=== PATIENT | female | born 1995 | race Caucasian/White ===

== ENCOUNTER → 2018-01-30 | Outpatient (CLI) | payer OTHER ==
[2018-01-30 15:13] LABS: BASO % 1 % (0-3); EOS # 0.1 x10^3/uL (0.0-0.7); EOS % 1 % (0-3); HEMATOCRIT 38.9 % (36.0-47.0); HEMOGLOBIN 13.6 g/dL (12.0-15.5); LYMPH # 2.5 x10^3/uL (1.0-4.8); LYMPH % 35 % (24-48); MEAN CORPUSCULAR HEMOGLOBIN 31 pg (25-35); MEAN CORPUSCULAR HGB CONC 35 g/dL (31-37); MEAN CORPUSCULAR VOLUME 90 fL (79-100); MONO # 0.6 x10^3/uL (0.0-1.1); MONO % 8 % (0-9); NEUT # 4.1 x10^3uL (1.8-7.7); NEUT % 56 % (31-73); PLATELET COUNT 181 x10^3/uL (140-400); RED BLOOD COUNT 4.34 x10^6/uL (3.50-5.40); RED CELL DISTRIBUTION WIDTH 12.3 % (11.5-14.5); WHITE BLOOD COUNT 7.3 x10^3/uL (4.0-11.0)
== END | disposition home or self-care (01) ==
LOC: LAB 14:38
PROVIDERS: ATTEND Obstetrics & Gynecology
DX: Z32.01 Encounter for pregnancy test, result positive (principal)
CPT/HCPCS: 85025; 86592; 86703; 86706; 86762; 86850; 86900; 86901; 87340

== ENCOUNTER 2018-03-11 03:23 | Inpatient (IN) | payer OTHER ==
[~2018-03-11] VITALS: Ht 162.6 cm; Wt 59.0 kg
[2018-03-11 03:50] VITALS: BP_SYST 113; BP_SYST 128; BP_DIAS 57; BP_DIAS 71
[2018-03-11] MEDS ORDERED: ESCITALOPRAM OX20 MG PO (03:59)
[2018-03-11] MEDS ORDERED: ONDANSETRON PF 4 MG/2 ML VIAL. IV PRN (04:00)
[2018-03-11] MEDS ORDERED: MORPHINE SULFATE 2 MG/ML VIAL. IV PRN (04:00)
[2018-03-11] MEDS ORDERED: IV RINGERS,LACTATED 1000ML 1,000 ML IV SCH (04:00)
[2018-03-11 07:00] VITALS: BP 111/60
--- NOTE | 2018-03-11 07:34 | PDOC1 ---
History and Physical Date of Admission Date of Admission DATE: 03/11/18 TIME: 07:33 Identification/Chief Complaint Chief Complaint RLQ pain 11 weeks gestation MDD Source Source: Chart review, Patient History of Present Illness History of Present Illness 23yo female with PMHx depression, 11 weeks gestation came to [facility] ED last night c/o RLQ pain that is colicky, radiating to umbilicus. Only relief was with morphine 4mg IV. She underwent TVUS noting IUP and RLQ US not visualizing the appendix well, but no notable masses/abscess. She was transferred for surgical consultation and consideration of MRI to better elucidate her pain. US did show 11 wks 6 days IUP with small subchorionic blood collection and placenta previa. No WBC elevation or fever noted. Past Medical History Cardiovascular: No pertinent hx Pulmonary: No pertinent hx GI: No pertinent hx Heme/Onc: No pertinent hx Hepatobiliary: No pertinent hx Psych: No pertinent hx Rheumatologic: No pertinent hx Infectious disease: No pertinent hx ENT: No pertinent hx Renal/: No pertinent hx Endocrine: No pertinent hx Dermatology: No pertinent hx Past Surgical History Past Surgical History: No pertinent history Family History Family History: Chronic Bronchitis, Heart Disease Social History Smoke: No ALCOHOL: none Drugs: None Current Medications Current Medications Current Medications Ringer's Solution 1,000 ml @ 75 mls/hr [id number] IV Last administered on at 04:15; Start 03/11/18 at 04:00 Morphine Sulfate (Morphine Sulfate) 2 mg PRN Q4HRS PRN IV PAIN; Start at 04:00 Ondansetron HCl (Zofran) 4 mg PRN Q8HRS PRN IV NAUSEA/VOMITING; Start at 04:00 Active Scripts Active Reported Escitalopram Oxalate 20 Mg Tablet 20 Mg PO DAILY Allergies Allergies: Coded Allergies: No Known Drug Allergies (Unverified , 03/11/18) ROS General: No: Chills, Night Sweats, Fatigue, Malaise, Appetite, Other PSYCHOLOGICAL ROS: No: Anxiety, Behavioral Disorder, Concentration difficultie , Decreased libido, Depression, Disorientation, Hallucinations, Hostility, Irritablity, Memory difficulties, Mood Swings, Obsessive thoughts, Physical abuse, Sexual abuse, Sleep disturbances, Suicidal ideation, Other Eyes: No Blurry vision, No Decreased vision, No Double vision, No Dry eyes, No Excessive tearing, No Eye Pain, No Itchy Eyes, No Loss of vision, No Photophobia , No Scotomata, No Uses contacts, No Uses glasses, No Other HEENT: No: Heacaches, Visual Changes, Hearing change, Nasal congestion, Nasal discharge, Oral lesions, Sinus pain, Sore Throat, Epistaxis, Sneezing, Snoring, Tinnitus, Vertigo, Vocal changes, Other ALLERGY AND IMMUNOLOGY: No: Hives, Insect Bite Sensitivity, Itchy/Watery Eyes, Nasal Congestion, Post Nasal Drip, Seasonal Allergies, Other Hematological and Lymphatic: No: Bleeding Problems, Blood Clots, Blood Transfusions, Brusing, Night Sweats, Pallor, Swollen Lymph Nodes, Other ENDOCRINE: No: Breast Changes, Galactorrhea, Hair Pattern Changes, Hot Flashes , Malaise/lethargy, Mood Swings, Palpitations, Polydipsia/polyuria, Skin Changes , Temperature Intolerance, Unexpected Weight Changes, Other Breast: No New/Changing Breast Lumps, No Nipple changes, No Nipple discharge, No Other Respiratory: No: Cough, Hemoptysis, Orthopnea, Pleuritic Pain, Shortness of breath, SOB with excertion, Sputum Changes, Stridor, Tachypnea, Wheezing, Other Cardiovascular: No Chest Pain, No Palpitations, No Orthopnea, No Paroxysmal Noc. Dyspnea, No Edema, No Lt Headedness, No Other Gastrointestinal: Yes Constipation; No Nausea, No Vomiting, No Abdominal Pain, No Diarrhea, No Melena, No Hematochezia, No Other Genitourinary: No Dysuria, No Frequency, No Incontinence, No Hematuria, No Retention, No Discharge, No Urgency, No Pain, No Flank Pain, No Other, No , No , No , No , No , No , No Musculoskeletal: No Gait Disturbance, No Joint Pain, No Joint Stiffness, No Joint Swelling, No Muscle Pain, No Muscular Weakness, No Pain In:, No Swelling In:, No Other Neurological: No Behavorial Changes, No Bowel/Bladder ControlChng, No Confusion , No Dizziness, No Gait Disturbance, No Headaches, No Impaired Coord/balance, No Memory Loss, No Numbness/Tingling, No Seizures, No Speech Problems, No Tremors, No Visual Changes, No Weakness, No Other Skin: No Dry Skin, No Eczema, No Hair Changes, No Lumps, No Mole Changes, No Mottling, No Nail Changes, No Pruritus, No Rash, No Skin Lesion Changes, No Other, No Acne Physical Exam General: Alert, Oriented X3, Cooperative, No acute distress HEENT: Atraumatic, PERRLA, EOMI, Mucous membr. moist/pink Heart: S1S2, RRR, no murmurs Abdomen: Normal bowel sounds, Soft, No tenderness, No hepatosplenomegaly, No masses Rectal Exam: not examined Extremities: No clubbing, No cyanosis, No edema, Normal pulses, No tenderness/ swelling Skin: No rashes, No breakdown, No significant lesion Neuro: Normal gait, Normal speech, Strength at 5/5 X4 ext, Normal tone, Sensation intact, Cranial nerves 3-12 NL, Reflexes 2+ Psych/Mental Status: Mental status NL, Mood NL Vitals Vitals Vital Signs Date Time Temp Pulse Resp B/P (MAP) Pulse Ox O2 Delivery O2 Flow Rate FiO2 03/11/18 03:50 98.3 81 18 128/71 (90) 94 Room Air 98.3 VTE Prophylaxis Ordered VTE Prophylaxis Devices: Yes VTE Pharmacological Prophylaxi: No Assessment/Plan Assessment/Plan A/P: RLQ pain - improving, but did not have diet yet. 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 Placenta previa - MDD - stable mood today. her partner is bedside Diet - NPO -->Advance if ok with surgery PPX - ambulatory FULL CODE Admitted inpatient for concern for appendicitis MICHEAL HWANG MD Mar 11, 2018 07:34
--- NOTE | 2018-03-11 09:28 | PDOC2 ---
CONSULT Date of Consult Date of Consult DATE: 03/11/18 TIME: 09:24 Reason for Consult Reason for Consult: Abdominal pain Referring Physician Referring Physician: Manisha Identification/Chief Complaint Chief Complaint Lower midline abdominal pain with nausea vomiting Source Source: Patient History of Present Illness Reason for Visit: 23-year-old female 11 weeks had severe lower midline pelvic pain and nausea with vomiting she had a bowel movement yesterday which are generally constipated of this was no different. She denies any fevers or chills. Currently she states her pain is much improved Past Medical History Cardiovascular: No pertinent hx Pulmonary: No pertinent hx GI: No pertinent hx Heme/Onc: No pertinent hx Hepatobiliary: No pertinent hx Psych: No pertinent hx Rheumatologic: No pertinent hx ENT: No pertinent hx Renal/: No pertinent hx Endocrine: No pertinent hx Dermatology: No pertinent hx Past Surgical History Past Surgical History: No pertinent history Family History Family History: No Significant Social History No ALCOHOL: none Drugs: None Lives: with Family Current Medications Current Medications Current Medications Ringer's Solution 1,000 ml @ 75 mls/hr [id number] IV Last administered on at 04:15; Start 03/11/18 at 04:00 Morphine Sulfate (Morphine Sulfate) 2 mg PRN Q4HRS PRN IV PAIN; Start at 04:00 Ondansetron HCl (Zofran) 4 mg PRN Q8HRS PRN IV NAUSEA/VOMITING; Start at 04:00 Active Scripts Active Reported Escitalopram Oxalate 20 Mg Tablet 20 Mg PO DAILY Allergies Allergies: Coded Allergies: No Known Drug Allergies (Unverified , 03/11/18) ROS Gastrointestinal: Yes Nausea, Yes Vomiting, Yes Abdominal Pain Physical Exam General: Alert, Oriented X3, Cooperative, No acute distress HEENT: Atraumatic, EOMI Lungs: Clear to auscultation, Normal air movement Heart: Regular rate, No murmurs Abdomen: Normal bowel sounds, Soft, No tenderness Extremities: No edema Skin: No significant lesion Neuro: Normal speech Psych/Mental Status: Mental status NL Vitals VITALS Vital Signs Date Time Temp Pulse Resp B/P (MAP) Pulse Ox O2 Delivery O2 Flow Rate FiO2 03/11/18 07:00 98.7 86 18 111/60 (77) 99 Room Air 98.7 Labs Labs CBC at [place] showed normal white count with normal shift Images Images Ultrasound of the abdomen and pelvis did not visualize an appendix Assessment/Plan Assessment/Plan Lower abdominal pain in 11 weeks gestational normal white count afebrile normal heart rate normal shift ultrasound did not visualize appendix. Very unlikely to be appendicitis No surgical plans at this time KATHI SHORT MD Mar 11, 2018 09:28
--- NOTE | 2018-03-11 10:52 | PDOC2 ---
CONSULT Date of Consult Date of Consult DATE: 03/11/18 TIME: 10:44 Reason for Consult Reason for Consult: abd pain Referring Physician Referring Physician: Dr. Rushing Identification/Chief Complaint Chief Complaint abd pain Source Source: Chart review, Patient History of Present Illness Reason for Visit: 23 y/o @ 11 wks 6 days presented to [facility] ED with c/o severe RLQ pain that was sudden and sharp in nature. She denies any fevers, chills, N/V, dysuria or hematuria. Sono indicated 11 wks 6 days IUP with small subchorionic blood collection and placenta previa. Past Medical History Cardiovascular: No pertinent hx Pulmonary: No pertinent hx GI: No pertinent hx Heme/Onc: No pertinent hx Hepatobiliary: No pertinent hx Psych: No pertinent hx Rheumatologic: No pertinent hx ENT: No pertinent hx Renal/: No pertinent hx Endocrine: No pertinent hx Dermatology: No pertinent hx Past Surgical History Past Surgical History: No pertinent history Family History Family History: No Significant Social History No ALCOHOL: none Drugs: None Lives: with Family Current Medications Current Medications Current Medications Ringer's Solution 1,000 ml @ 75 mls/hr [id number] IV Last administered on at 04:15; Start 03/11/18 at 04:00 Morphine Sulfate (Morphine Sulfate) 2 mg PRN Q4HRS PRN IV PAIN; Start at 04:00 Ondansetron HCl (Zofran) 4 mg PRN Q8HRS PRN IV NAUSEA/VOMITING; Start at 04:00 Active Scripts Active Reported Escitalopram Oxalate 20 Mg Tablet 20 Mg PO DAILY Allergies Allergies: Coded Allergies: No Known Drug Allergies (Unverified , 03/11/18) ROS General: YES: Fatigue, Appetite; No: Chills, Night Sweats, Malaise, Other PSYCHOLOGICAL ROS: No: Anxiety, Behavioral Disorder, Concentration difficultie , Decreased libido, Depression, Disorientation, Hallucinations, Hostility, Irritablity, Memory difficulties, Mood Swings, Obsessive thoughts, Physical abuse, Sexual abuse, Sleep disturbances, Suicidal ideation, Other Eyes: No Blurry vision, No Decreased vision, No Double vision, No Dry eyes, No Excessive tearing, No Eye Pain, No Itchy Eyes, No Loss of vision, No Photophobia , No Scotomata, No Uses contacts, No Uses glasses, No Other HEENT: No: Heacaches, Visual Changes, Hearing change, Nasal congestion, Nasal discharge, Oral lesions, Sinus pain, Sore Throat, Epistaxis, Sneezing, Snoring, Tinnitus, Vertigo, Vocal changes, Other ALLERGY AND IMMUNOLOGY: No: Hives, Insect Bite Sensitivity, Itchy/Watery Eyes, Nasal Congestion, Post Nasal Drip, Seasonal Allergies, Other Hematological and Lymphatic: No: Bleeding Problems, Blood Clots, Blood Transfusions, Brusing, Night Sweats, Pallor, Swollen Lymph Nodes, Other ENDOCRINE: No: Breast Changes, Galactorrhea, Hair Pattern Changes, Hot Flashes , Malaise/lethargy, Mood Swings, Palpitations, Polydipsia/polyuria, Skin Changes , Temperature Intolerance, Unexpected Weight Changes, Other Breast: No New/Changing Breast Lumps, No Nipple changes, No Nipple discharge, No Other Respiratory: No: Cough, Hemoptysis, Orthopnea, Pleuritic Pain, Shortness of breath, SOB with excertion, Sputum Changes, Stridor, Tachypnea, Wheezing, Other Cardiovascular: No Chest Pain, No Palpitations, No Orthopnea, No Paroxysmal Noc. Dyspnea, No Edema, No Lt Headedness, No Other Gastrointestinal: No Nausea, No Vomiting, No Abdominal Pain, No Diarrhea, No Constipation, No Melena, No Hematochezia, No Other Genitourinary: No Dysuria, No Frequency, No Incontinence, No Hematuria, No Retention, No Discharge, No Urgency, No Pain, No Flank Pain, No Other, No , No , No , No , No , No , No Musculoskeletal: No Gait Disturbance, No Joint Pain, No Joint Stiffness, No Joint Swelling, No Muscle Pain, No Muscular Weakness, No Pain In:, No Swelling In:, No Other Neurological: No Behavorial Changes, No Bowel/Bladder ControlChng, No Confusion , No Dizziness, No Gait Disturbance, No Headaches, No Impaired Coord/balance, No Memory Loss, No Numbness/Tingling, No Seizures, No Speech Problems, No Tremors, No Visual Changes, No Weakness, No Other Physical Exam General: Alert, Oriented X3, Cooperative HEENT: Atraumatic Lungs: Clear to auscultation Abdomen: Normal bowel sounds, Soft, No tenderness, No hepatosplenomegaly, No masses Extremities: No edema Neuro: Normal gait Psych/Mental Status: Mental status NL Vitals VITALS Vital Signs Date Time Temp Pulse Resp B/P (MAP) Pulse Ox O2 Delivery O2 Flow Rate FiO2 03/11/18 08:00 Room Air 03/11/18 07:00 98.7 86 18 111/60 (77) 99 98.7 Assessment/Plan Assessment/Plan A: Abd pain resolved 11 wks IUP with placenta previa P: Increase IV fluids and advance diet. If tolerating regular diet, then d/c home with f/u next week. Pelvic rest until placenta resolves. Thank you for consult. BAKARI AGEE Jr, MD Mar 11, 2018 10:52
[2018-03-11 11:00] VITALS: BP 104/53
[2018-03-11] MEDS ORDERED: PSYL822P6 PO (13:49)
--- NOTE | 2018-03-11 13:51 | PDOC3 ---
Discharge Summary Visit Information Date of Admission: Mar 11, 2018 Date of Discharge: Mar 11, 2018 Admitting Diagnosis: RLQ pain Final Diagnosis Placenta Previa Brief Hospital Course Allergies Allergies Coded Allergies Type Severity Reaction Last Updated Verified No Known Drug Allergies 03/11/18 No Vital Signs Vital Signs Date Time Temp Pulse Resp B/P (MAP) Pulse Ox O2 Delivery O2 Flow Rate FiO2 03/11/18 11:00 98.9 79 18 104/53 (70) 98 Room Air 98.9 Brief Hospital Course 23yo female with PMHx depression, 11 weeks gestation came to [facility] ED last night c/o RLQ pain that is colicky, radiating to umbilicus. Only relief was with morphine 4mg IV. She underwent TVUS noting IUP and RLQ US not visualizing the appendix well, but no notable masses/abscess. She was transferred for surgical consultation and consideration of MRI to better elucidate her pain. US did show 11 wks 6 days IUP with small subchorionic blood collection and placenta previa. No WBC elevation or fever noted. Seen by surgery and Quality Rep, pain noted to be related to placenta previa, improved with pelvic and bedrest. A/P: RLQ pain - improving, but did not have diet yet. 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 Placenta previa - pelvic rest for the next 2 weeks, f/u with [employer] MDD - stable mood today. her partner is bedside Diet - General diet tolerated well PPX - ambulatory FULL CODE Ok for d/c home today Discharge Information Condition at Discharge: Improved Follow Up: Weeks (1) Disposition/Orders: D/C to Home Scheduled Escitalopram Oxalate (Escitalopram Oxalate) 20 Mg Tablet, 20 MG PO DAILY for ANTI-DEPRESSANT, Ref 0 (Reported) Entered as Reported by: JUAREZ TAVERAS on 03/11/18358 Last Taken: Unknown Dose on 03/10/18 Last Action: New Order on 03/11/18358 by JUAREZ TAVERAS Psyllium Husk (with Sugar) (Metamucil Powder) 822 Gm Powder, 822 GM PO DAILY for 30 Days Prescribed by: MICHEAL HWANG MD on 03/11/18 [id number] MICHEAL HWANG MD Mar 11, 2018 13:51
== END 2018-03-11 14:05 | disposition home or self-care (01) | DRG 833 ==
LOC: 4 NORTH 03:23
PROVIDERS: ADMIT Internal Medicine; ATTEND Internal Medicine
DX: O44.11 Complete placenta previa with hemorrhage, first trimester (principal); O21.9 Vomiting of pregnancy, unspecified; O99.341 Other mental disorders complicating pregnancy, first trimester; K59.00 Constipation, unspecified; Z3A.11 11 weeks gestation of pregnancy; F32.9 Major depressive disorder, single episode, unspecified; Z82.5 Family history of asthma and other chronic lower respiratory diseases
CPT/HCPCS: J7120

== ENCOUNTER 2018-08-21 16:26 | Observation (INO) | payer OTHER ==
[2018-08-20 08:29] VITALS: BP 113/58
[~2018-08-21 16:26] MED LIST: ESCITALOPRAM OX20 MG PO; PSYL822P6 PO
== END 2018-08-21 19:30 | disposition home or self-care (01) ==
LOC: 3 SO LND 16:26
PROVIDERS: ADMIT Obstetrics & Gynecology; ATTEND Obstetrics & Gynecology
DX: O62.9 Abnormality of forces of labor, unspecified (principal); Z3A.34 34 weeks gestation of pregnancy
CPT/HCPCS: G0378; G0379

== ENCOUNTER 2018-08-30 04:15 | Observation (INO) | payer OTHER ==
[2018-08-20 08:29] VITALS: BP 113/58
[2018-08-30] MEDS ORDERED: IV RINGERS,LACTATED 1000ML 1,000 ML IV SCH (04:21)
[2018-08-30 04:45] LABS: BILIRUBIN,URINE NEGATIVE (NEG); CLARITY,URINE CLEAR; COLOR,URINE YELLOW; NITRITE,URINE NEGATIVE (NEG); PH,URINE 6.5; PROTEIN,URINE NEGATIVE (NEG-TRACE); UROBILINOGEN,URINE 0.2 mg/dL (0.2 mg/dL)
[2018-08-30 04:51] LABS: BARBITURATES NEG (NEG); BENZODIAZEPINES NEG (NEG); CANNABINOIDS NEG (NEG); COCAINE NEG (NEG); METHADONE NEG (NEG); OPIATES NEG (NEG); PHENCYCLIDINE NEG (NEG)
[2018-08-30 04:56] LABS: AMPHETAMINE/METHAMPHETAMINE NEG (NEG)
[2018-08-30 05:01] LABS: BACTERIA,URINE FEW /HPF (0-FEW); RBC,URINE OCC /HPF (0-2); SQUAMOUS EPITHELIAL CELL,UR FEW /LPF; WBC,URINE OCC /HPF (0-4)
== END 2018-08-30 10:43 | disposition home or self-care (01) ==
LOC: 3 SO LND 04:15
PROVIDERS: ADMIT Obstetrics & Gynecology; ATTEND Obstetrics & Gynecology
DX: O62.9 Abnormality of forces of labor, unspecified (principal); Z3A.36 36 weeks gestation of pregnancy
CPT/HCPCS: 80307; 81001; G0378; G0379

== ENCOUNTER 2018-09-06 23:46 | Inpatient (IN) | payer OTHER ==
[~2018-09-06] VITALS: Ht 167.6 cm; Wt 78.5 kg
[2018-09-06] MEDS ORDERED: IV RINGERS,LACTATED 1000ML 1,000 ML IV SCH (23:50)
[2018-09-07 00:25] LABS: BILIRUBIN,URINE NEGATIVE (NEG); CLARITY,URINE CLEAR; COLOR,URINE YELLOW; NITRITE,URINE NEGATIVE (NEG); PROTEIN,URINE NEGATIVE (NEG-TRACE); UROBILINOGEN,URINE 0.2 mg/dL (0.2 mg/dL)
[2018-09-07 00:43] LABS: BACTERIA,URINE 0 /HPF (0-FEW); RBC,URINE RARE /HPF (0-2); SQUAMOUS EPITHELIAL CELL,UR OCC /LPF; WBC,URINE 0 /HPF (0-4)
[2018-09-07] MEDS ORDERED: IV RINGERS,LACTATED 1000ML 1,000 ML IV SCH (01:00)
[2018-09-07] MEDS ORDERED: MAG HYDROX/ALUMINUM HYD/SIMETH 30 ML ORAL.SUSP PO PRN ×2 (01:00→07:15)
[2018-09-07] MEDS ORDERED: IBUPROFEN 400 MG TABLET. PO PRN (01:00)
[2018-09-07] MEDS ORDERED: ONDANSETRON PF 4 MG/2 ML VIAL. IV PRN (01:00)
[2018-09-07] MEDS ORDERED: 0.9 % SODIUM CHLORIDE 10 ML DISP.SYRIN. IV PRN ×2 (01:00→07:15)
[2018-09-07] MEDS ORDERED: fentaNYL PF VIAL 100 MCG/2 ML VIAL IV PRN ×2 (01:00)
[2018-09-07] MEDS ORDERED: LIDOCAINE 1% PF 30 ML VIAL. INJ PRN (01:00)
[2018-09-07] MEDS ORDERED: OXYTOCIN 30 UNIT/500 ML PREMIX 500 ML IV PRN ×3 (01:00→07:15)
[2018-09-07] MEDS ORDERED: BUTORPHANOL 2 MG/ML VIAL. IV PRN ×2 (01:00)
[2018-09-07] MEDS ORDERED: AMPICILLIN SODIUM 2 GM in IV NORMAL SALINE 100ML 100 ML IV ONE (01:00)
[2018-09-07] MEDS ORDERED: ACETAMINOPHEN 325 MG TABLET. PO PRN ×2 (01:00→07:15)
[2018-09-07 01:05] VITALS: BP 136/65
[2018-09-07 02:07] LABS: BASO % 0 % (0-3); EOS % 1 % (0-3); HEMATOCRIT 34.8 % (36.0-47.0); LYMPH # 1.5 x10^3/uL (1.0-4.8); LYMPH % 24 % (24-48); MEAN CORPUSCULAR HEMOGLOBIN 32 pg (25-35); MEAN CORPUSCULAR HGB CONC 34 g/dL (31-37); MEAN CORPUSCULAR VOLUME 92 fL (79-100); MONO # 0.7 x10^3/uL (0.0-1.1); MONO % 11 % (0-9); NEUT # 4.1 x10^3uL (1.8-7.7); NEUT % 65 % (31-73); PLATELET COUNT 144 x10^3/uL (140-400); RED BLOOD COUNT 3.76 x10^6/uL (3.50-5.40); WHITE BLOOD COUNT 6.3 x10^3/uL (4.0-11.0)
[2018-09-07] MEDS ORDERED: AMPICILLIN SODIUM 1 GM in IV NORMAL SALINE 50ML 50 ML IV SCH (05:00)
[2018-09-07] MEDS ORDERED: NALBUPHINE 10 MG/ML AMPUL. IV PRN (06:00)
--- NOTE | 2018-09-07 06:58 | PDOC1 ---
OB - History Hx of Present Care: Good Care Ultrasounds: Normal mid trimester US Obstetrical Complications: None Medical Complications: None Past Family/Social History * Past Medical, Surgical, Family and Obstetric Histories reviewed from chart. Rubella: Immune RPR/VDRL: Negative GBS Status: Negative HBsAG: Negative OB - Chief Complaint & HPI Date of Admission: Date of Admission: Sep 06, 2018 at 23:46 Chief Complaint/History : 2 Para: 1 EGA: 37 Reason for admission: active labor Admission Nurse Assessment Rev: Yes OB - Admission Exam Physical Exam Vitals: VS - Last 72 Hours, by Label Date Time Temp Pulse Resp B/P (MAP) Pulse Ox O2 Delivery O2 Flow Rate FiO2 09/07/18 06:15 22 Room Air 09/07/18 01:05 98.3 101 18 136/65 (88) Room Air 98.3 HEENT: Normal Heart: Regular Rate Lungs: Clear Abdomen: Gravid, Non tender, Soft Extremities: Edema Reflexes: Normal Cervical Dilatation: 3cm Effacement: 75% Station: -2 Membranes: Ruptured Amniotic Fluid: Clear Heart Rate: Normal Accelerations: Accelerations Present Decelerations: No decelerations Contractions on Admission: 6-10 Minutes Apart Intensity: Moderate Text A: 37 wks IUP SROM Active labor GBS unknown P: Admit for labor management. Start Pen G prophylaxis. BAKARI AGEE Jr, MD Sep 07, 2018 06:58
--- NOTE | 2018-09-07 07:03 | PDOC ---
VAGINAL DELIVERY DATE DATE: 09/07/18 TIME: 06:58 : 2 Para: 2 EGA: 37 VAGINAL DELIVERY: VTX VACCUM ASSISTED: No PLACENTA: Spontaneous 8/9 SEX: Female WEIGHT Weight [3715 gm ] Nuchal Cord: No Amniotic Fluid: Clear PAIN: Natural EPISIOTOMY: No EXTENSION: Yes (1st degree midline laceration and left labial laceration; both hemostatic) REPAIRED WITH none EBL 200 ml COMPLICATIONS none CONDITION pt. stable Signs of Intrauterine Infectio: None Shoulder Dystocia: No BAKARI AGEE Jr, MD Sep 07, 2018 07:03
[2018-09-07] MEDS ORDERED: diphenhydrAMINE HCL 25 MG CAPSULE PO PRN (07:15)
[2018-09-07] MEDS ORDERED: ZOLPIDEM 5 MG TABLET. PO PRN (07:15)
[2018-09-07] MEDS ORDERED: HYDROCORTISONE 1% TOPICAL OINTMENT 30GM TUBE. TP PRN (07:15)
[2018-09-07] MEDS ORDERED: SIMETHICONE 80 MG TAB.CHEW PO PRN (07:15)
[2018-09-07] MEDS ORDERED: PHENYLEPH/MINERAL OIL/PETROLAT RECTAL OINTMENT 28GM TUBE. RC PRN (07:15)
[2018-09-07] MEDS ORDERED: MAGNESIUM HYDROXIDE 2,400 MG/30 ML ORAL.SUSP. PO PRN (07:15)
[2018-09-07] MEDS ORDERED: MMR per PROTOCOL. MC PRN (07:15)
[2018-09-07] MEDS ORDERED: oxyCODONE/APAP 5/325 1 TAB TABLET PO PRN (07:15)
[2018-09-07] MEDS: BENZOCAINE 20% TOPICAL AEROSOL SPRAY 57GM CAN. TP PRN (08:14)
[2018-09-07] MEDS: IBUPROFEN 400 MG TABLET. PO PRN ×2 (08:20→17:31)
[2018-09-07 09:00] VITALS: BP 130/80
[2018-09-07 11:28] VITALS: BP 121/67
[2018-09-07] MEDS: DOCUSATE SODIUM 100 MG CAPSULE. PO PRN (17:31)
[2018-09-07 18:30] VITALS: BP 121/68
[2018-09-07 22:55] VITALS: BP 124/71
[2018-09-08] MEDS: IBUPROFEN 400 MG TABLET. PO PRN ×2 (06:06→17:24)
[2018-09-08 06:16] VITALS: BP 121/75
[2018-09-08 07:19] LABS: BASO # 0.1 x10^3/uL (0.0-0.2); BASO % 1 % (0-3); EOS # 0.1 x10^3/uL (0.0-0.7); EOS % 1 % (0-3); HEMATOCRIT 35.7 % (36.0-47.0); HEMOGLOBIN 11.9 g/dL (12.0-15.5); LYMPH # 2.1 x10^3/uL (1.0-4.8); LYMPH % 22 % (24-48); MEAN CORPUSCULAR HEMOGLOBIN 31 pg (25-35); MEAN CORPUSCULAR HGB CONC 33 g/dL (31-37); MEAN CORPUSCULAR VOLUME 94 fL (79-100); MONO # 0.7 x10^3/uL (0.0-1.1); MONO % 8 % (0-9); NEUT # 6.3 x10^3uL (1.8-7.7); NEUT % 68 % (31-73); PLATELET COUNT 127 x10^3/uL (140-400); RED BLOOD COUNT 3.81 x10^6/uL (3.50-5.40); WHITE BLOOD COUNT 9.3 x10^3/uL (4.0-11.0)
[2018-09-08] MEDS: FERROUS SULFATE 325 MG TABLET. PO SCH ×2 (08:00→17:00)
[2018-09-08 11:55] VITALS: BP 123/62
--- NOTE | 2018-09-08 12:48 | NUR ---
Pt. states having visual changes and headache. Pt. VSS, reflexes WNL, no clonus. Pt. was given Tylenol for headache and reassurance.
--- NOTE | 2018-09-08 13:42 | NUR ---
Pt. talking with family and states is have no visual disturbances or a headache.
--- NOTE | 2018-09-08 15:24 | PDOC ---
OB Progress Note Date of Service 09/08/18 Time of Evaluation 1520 Notes Pt. feeling well. No complaints. SHe has occasional vision disturbance but has not worn her glasses for the past few weeks. Recommend eye exam once discharged. Lab Laboratory Tests Test 09/07/18 00:10 09/07/18 01:30 09/08/18 06:25 Urine Collection Type Unknown Urine Color Yellow Urine Clarity Clear Urine pH 6.0 Urine Specific [place] 1.015 Urine Protein Negative mg/dL (NEG-TRACE) Urine Glucose (UA) 250 mg/dL (NEG) Urine Ketones (Stick) Trace mg/dL (NEG) Urine Blood Negative (NEG) Urine Nitrite Negative (NEG) Urine Bilirubin Negative (NEG) Urine Urobilinogen Dipstick 0.2 mg/dL (0.2 mg/dL) Urine Leukocyte Esterase Negative (NEG) Urine RBC Rare /HPF (0-2) Urine WBC 0 /HPF (0-4) Urine Squamous Epithelial Cells Occ /LPF Urine Bacteria 0 /HPF (0-FEW) White Blood Count 6.3 x10^3/uL (4.0-11.0) 9.3 x10^3/uL (4.0-11.0) Red Blood Count 3.76 x10^6/uL (3.50-5.40) 3.81 x10^6/uL (3.50-5.40) Hemoglobin 12.0 g/dL (12.0-15.5) 11.9 g/dL (12.0-15.5) Hematocrit 34.8 % (36.0-47.0) 35.7 % (36.0-47.0) Mean Corpuscular Volume 92 fL (79-100) 94 fL (79-100) Mean Corpuscular Hemoglobin 32 pg (25-35) 31 pg (25-35) Mean Corpuscular Hemoglobin Concent 34 g/dL (31-37) 33 g/dL (31-37) Red Cell Distribution Width 14.0 % (11.5-14.5) 14.0 % (11.5-14.5) Platelet Count 144 x10^3/uL (140-400) 127 x10^3/uL (140-400) Neutrophils (%) (Auto) 65 % (31-73) 68 % (31-73) Lymphocytes (%) (Auto) 24 % (24-48) 22 % (24-48) Monocytes (%) (Auto) 11 % (0-9) 8 % (0-9) Eosinophils (%) (Auto) 1 % (0-3) 1 % (0-3) Basophils (%) (Auto) 0 % (0-3) 1 % (0-3) Neutrophils # (Auto) 4.1 x10^3uL (1.8-7.7) 6.3 x10^3uL (1.8-7.7) Lymphocytes # (Auto) 1.5 x10^3/uL (1.0-4.8) 2.1 x10^3/uL (1.0-4.8) Monocytes # (Auto) 0.7 x10^3/uL (0.0-1.1) 0.7 x10^3/uL (0.0-1.1) Eosinophils # (Auto) 0.0 x10^3/uL (0.0-0.7) 0.1 x10^3/uL (0.0-0.7) Basophils # (Auto) 0.0 x10^3/uL (0.0-0.2) 0.1 x10^3/uL (0.0-0.2) Treponema pallidum Antibody Nonreactive (Nonreactive) Hepatitis B Surface Antigen Nonreactive (Nonreactive) Laboratory Tests Test 09/08/18 06:25 White Blood Count 9.3 x10^3/uL (4.0-11.0) Red Blood Count 3.81 x10^6/uL (3.50-5.40) Hemoglobin 11.9 g/dL (12.0-15.5) Hematocrit 35.7 % (36.0-47.0) Mean Corpuscular Volume 94 fL (79-100) Mean Corpuscular Hemoglobin 31 pg (25-35) Mean Corpuscular Hemoglobin Concent 33 g/dL (31-37) Red Cell Distribution Width 14.0 % (11.5-14.5) Platelet Count 127 x10^3/uL (140-400) Neutrophils (%) (Auto) 68 % (31-73) Lymphocytes (%) (Auto) 22 % (24-48) Monocytes (%) (Auto) 8 % (0-9) Eosinophils (%) (Auto) 1 % (0-3) Basophils (%) (Auto) 1 % (0-3) Neutrophils # (Auto) 6.3 x10^3uL (1.8-7.7) Lymphocytes # (Auto) 2.1 x10^3/uL (1.0-4.8) Monocytes # (Auto) 0.7 x10^3/uL (0.0-1.1) Eosinophils # (Auto) 0.1 x10^3/uL (0.0-0.7) Basophils # (Auto) 0.1 x10^3/uL (0.0-0.2) Medications Current Medications Ringer's Solution 1,000 ml @ 125 mls/hr Q8H IV Last administered on 09/07/18at 01:54; Start 09/06/18 at 23:50; Stop 09/07/18 at 08:07; Status DC Sodium Chloride (Normal Saline Flush) 3 ml QSHIFT PRN IV AFTER MEDS AND BLOOD DRAWS; Start 09/07/18 at 01:00; Stop 09/07/18 at 07:20; Status DC Ringer's Solution 1,000 ml @ 125 mls/hr Q8H IV Last administered on 09/07/18at 05:31; Start 09/07/18 at 01:00; Stop 09/07/18 at 08:07; Status DC Butorphanol Tartrate (Stadol) 1 mg PRN Q1HR PRN IV mild to moderate labor pain ; Start 09/07/18 at 01:00; Status Cancel Butorphanol Tartrate (Stadol) 2 mg PRN Q1HR PRN IV Severe labor pain; Start at 01:00; Status Cancel Fentanyl Citrate (Fentanyl 2ml Vial) 75 mcg PRN Q20MIN PRN IV Labor pain; Start 09/07/18 at 01:00; Stop 09/07/18 at 07:20; Status DC Fentanyl Citrate (Fentanyl 2ml Vial) 100 mcg PRN Q20MIN PRN IV Labor pain; Start 09/07/18 at 01:00; Stop 09/07/18 at 07:20; Status DC Acetaminophen (Tylenol) 650 mg PRN Q6HRS PRN PO MILD PAIN / TEMP; Start at 01:00; Stop 09/07/18 at 07:20; Status DC Ondansetron HCl (Zofran) 4 mg PRN Q4HRS PRN IV NAUSEA/VOMITING Last administered on 09/07/18at 05:31; Start 09/07/18 at 01:00 Al Hydroxide/Mg Hydroxide (Mylanta Plus Xs) 30 ml PRN Q4HRS PRN PO HEARTBURN / GAS; Start 09/07/18 at 01:00; Stop 09/07/18 at 07:20; Status DC Lidocaine HCl (Xylocaine 1% Pf 30ml Vial) 30 ml 1X PRN PRN INJ SEE COMMENTS; Start 09/07/18 at 01:00; Stop 09/09/18 at 00:59 Ampicillin Sodium 2 gm/Sodium Chloride 100 ml @ 200 mls/hr 1X ONCE IV Last administered on 09/07/18at 01:54; Start 09/07/18 at 01:00; Stop 09/07/18 at 01:29 ; Status DC Ampicillin Sodium 1 gm/Sodium Chloride 50 ml @ 100 mls/hr Q4H IV ; Start at 05:00; Stop 09/07/18 at 07:20; Status DC Oxytocin/Sodium Chloride 500 ml @ 0 mls/hr CONT PRN IV SEE I/O RECORD Last administered on 09/07/18at 03:31; Start 09/07/18 at 01:00; Stop 09/07/18 at 08:07 ; Status DC Oxytocin/Sodium Chloride 500 ml @ 0 mls/hr CONT PRN PRN IV Post delivery bleeding; Start 09/07/18 at 01:00 Ibuprofen (Motrin) 800 mg PRN Q6HRS PRN PO PAIN; Start 09/07/18 at 01:00; Stop 09/07/18 at 07:20; Status DC Nalbuphine HCl (Nubain) 10 mg PRN Q2HR PRN IV SEVERE PAIN Last administered on 09/07/18at 06:15; Start 09/07/18 at 06:00; Stop 09/07/18 at 08:07; Status DC Sodium Chloride (Normal Saline Flush) 10 ml QSHIFT PRN IV AFTER MEDS AND BLOOD DRAWS; Start 09/07/18 at 07:15 Oxytocin/Sodium Chloride 500 ml @ 62.5 mls/hr CONT PRN IV SEE I/O RECORD; Start 09/07/18 at 07:15; Stop 09/07/18 at 08:07; Status DC Acetaminophen (Tylenol) 650 mg PRN Q6HRS PRN PO MILD PAIN / TEMP Last administered on 09/08/18at 12:32; Start 09/07/18 at 07:15 Ibuprofen (Motrin) 800 mg PRN Q8HRS PRN PO INFLAMMATION/PAIN PREVENTION Last administered on 09/08/18at 06:06; Start 09/07/18 at 07:15 Docusate Sodium (Colace) 100 mg PRN BID PRN PO CONSTIPATION Last administered on 09/07/18at 17:31; Start 09/07/18 at 07:15 Magnesium Hydroxide (Milk Of Magnesia) 2,400 mg PRN DAILY PRN PO CONSTIPATION; Start 09/07/18 at 07:15 Al Hydroxide/Mg Hydroxide (Mylanta Plus Xs) 30 ml PRN Q4HRS PRN PO HEARTBURN / GAS; Start 09/07/18 at 07:15 Simethicone (Gas-X) 80 mg PRN AFTMEALHC PRN PO GAS / BLOATING; Start 09/07/18 at 07:15 Diphenhydramine HCl (Benadryl) 25 mg PRN Q6HRS PRN PO ITCHING; Start 09/07/18 at 07:15 Benzocaine (Americaine) 1 spray PRN QID PRN TP TOPICAL PAIN Last administered on 09/07/18at 08:14; Start 09/07/18 at 07:15 Phenyleph/Shark Oil/Min Oil/Petrol (Preparation H) 1 geneva PRN QID PRN RC RECTAL PAIN; Start 09/07/18 at 07:15 Hydrocortisone (Cortaid) 1 geneva PRN QID PRN TP PERINEAL PAIN; Start 09/07/18 at 07:15 Ferrous Sulfate (Feosol) 325 mg BIDWMEALS PO ; Start 09/08/18 at 08:00 Zolpidem Tartrate (Ambien) 5 mg PRN QHS PRN PO INSOMNIA, MAY REPEAT X1; Start 09/07/18 at 07:15 Info (Do NOT chart on this placeholder) 1 ea 1X PRN PRN MC SEE COMMENTS; Start 09/07/18 at 07:15 Info (Do NOT chart on this placeholder) 1 ea 1X PRN PRN MC SEE COMMENTS; Start 09/07/18 at 07:15; Stop 09/07/18 at 08:07; Status DC Oxycodone/ Acetaminophen (Percocet 5/325) 2 tab PRN Q4HRS PRN PO MODERATE PAIN , SEVERE PAIN; Start 09/07/18 at 07:15 Active Scripts Active Metamucil Powder (Psyllium Husk (with Sugar)) 822 Gm Powder 822 Gm PO DAILY 30 Days Reported Escitalopram Oxalate 20 Mg Tablet 20 Mg PO DAILY Exam Abd: soft, non tender, fundus firm Assessment PPD#1 s/p Plan of Care: Continue current Tx, Mgmt BAKARI AGEE Jr, MD Sep 08, 2018 15:24
[2018-09-08] MEDS: BENZOCAINE 20% TOPICAL AEROSOL SPRAY 57GM CAN. TP PRN (16:06)
[2018-09-08 17:35] VITALS: BP 126/63
[2018-09-08 20:24] VITALS: BP 124/68
[2018-09-09 06:12] VITALS: BP 121/77
[2018-09-09] MEDS: IBUPROFEN 400 MG TABLET. PO PRN (06:42)
[2018-09-09] MEDS: DOCUSATE SODIUM 100 MG CAPSULE. PO PRN (09:25)
--- NOTE | 2018-09-09 10:06 | PDOC3 ---
OB DISCHARGE SUMMARY DATE OF ADMISSION: 09/07/18 DATE OF DISCHARGE: 09/09/18 REASON FOR ADMISSION: Onset of labor INTRAPARTUM PROCEDURES: Spontanous Vag Deliv DISCHARGE DIAGNOSIS: Term Delivered DISCHARGE INFORMATION: Activity (ad allan), Diet (regular), Instructions (pelvic rest x 6 wks) HOSPITAL COURSE Term gestation delivered vaginally without complications. BAKARI AGEE Jr, MD Sep 09, 2018 10:06
[2018-09-09] MEDS ORDERED: IBUP-1027 PO (10:08)
--- NOTE | 2018-09-09 10:08 | DISCH ---
DISCHARGE INSTRUCTIONS Condition on Discharge Condition on Discharge: Stable Activity After Discharge Activity Instructions for Disc: Avoid exertion Lifting Instructions after Dis: No heavy lifting Driving Instructions after Dis: Do not drive today Diet after Discharge Diet after Discharge: Regular Contacting the DRRoyer after DC Call your doctor for: Concerns you may have Follow-Up Follow up with: Dr. Marlow in 6 wks. Treatment/Equipment after DC Adaptive Equipment Issued: None BAKARI MARLOW Jr, MD Sep 09, 2018 10:08
[2018-09-09 11:20] VITALS: BP 120/75
== END 2018-09-09 13:00 | disposition home or self-care (01) | DRG 807 ==
LOC: OBSVTOIN 23:46 → 3 SO LND 23:46 → 3 NORTH 09-07 08:54
PROVIDERS: ADMIT Obstetrics & Gynecology; ATTEND Obstetrics & Gynecology
PROC: 10E0XZZ Delivery of Products of Conception, External Approach (ICD-10-PCS; principal; 2018-09-07)
PROC: 0HQ9XZZ Repair Perineum Skin, External Approach (ICD-10-PCS; 2018-09-07)
DX: O70.0 First degree perineal laceration during delivery (principal); Z37.0 Single live birth; Z3A.37 37 weeks gestation of pregnancy
CPT/HCPCS: 36415; 81001; 85025; 86592; 86850; 86900; 86901; 87340; G0378; J0290; J2300; J2405; J2590; J7120